=== PATIENT | male | born 1980 | race Caucasian/White ===

== ENCOUNTER → 2017-01-09 | Outpatient (CLI) | payer OTHER ==
[~2017-01-09] MED LIST: MOTRIN800 MG PO
== END | disposition home or self-care (01) ==
LOC: RAD 07:41
DX: S32.89XS Fracture of other parts of pelvis, sequela (principal); M47.897 Other spondylosis, lumbosacral region; M16.11 Unilateral primary osteoarthritis, right hip; G89.29 Other chronic pain; X58.XXXS Exposure to other specified factors, sequela